=== PATIENT | male | born 1995 | race Two or more races ===

== ENCOUNTER 2023-10-20 08:40 | Day surgery (SDC) | payer BC, OTHER ==
[2023-10-20] MEDS: Lactated Ringers 1,000 ML IV SCH (09:00)
[2023-10-20] MEDS ORDERED: dexmedeTOMIDine HCl 200 MCG/2 ML SDV ONE (09:56)
[2023-10-20] MEDS ORDERED: propofoL 50 ML ONE ×2 (09:57→10:10)
[2023-10-20] MEDS ORDERED: Lactated Ringers 1,000 ML IV SCH (11:00)
== END 2023-10-20 11:41 | disposition home or self-care (01) ==
LOC: MW.SDS 08:40
PROVIDERS: ATTEND Surgery
DX: K29.70 Gastritis, unspecified, without bleeding (principal); K21.9 Gastro-esophageal reflux disease without esophagitis; K31.89 Other diseases of stomach and duodenum; F41.9 Anxiety disorder, unspecified; J45.909 Unspecified asthma, uncomplicated; F32.A Depression, unspecified; Z87.891 Personal history of nicotine dependence; Z79.899 Other long term (current) drug therapy
CPT/HCPCS: 43239; 45380; J2704; J7120; 00813; J3490

== ENCOUNTER 2024-01-24 13:27 | Day surgery (SDC) | payer OTHER ==
[2024-01-24] MEDS: Acetaminophen/HYDROcodone 325-10 MG Tab PO ONE (14:49)
[2024-01-24] MEDS ORDERED: Sodium Chloride 0.9% 2.5 ML Syringe FLUSH PRN (14:59)
[2024-01-24] MEDS ORDERED: Sodium Chloride 0.9% 10 ML Syringe FLUSH PRN (14:59)
[2024-01-24 15:39] LABS: BASOPHILS ABSOLUTE AUTO 0.06 K/uL (0.00-0.20); BASOPHILS PERCENT AUTO 0.4 % (0.0-1.0); EOSINOPHILS PERCENT AUTO 0.7 % (0.0-6.0); HEMATOCRIT 42.2 % (42.0-52.0); HEMOGLOBIN 14.5 g/dL (14.0-18.0); IMMATURE GRAN ABSOLUTE AUTO 0.05 K/uL (0.00-0.05); IMMATURE GRAN PERCENT AUTO 0.3 % (0.0-0.4); LYMPHOCYTES ABSOLUTE AUTO 2.85 K/uL (1.00-4.80); MEAN CORPUSCULAR HEMOGLOBIN 28.7 pg (28.0-32.0); MEAN CORPUSCULAR HGB CONC 34.4 g/dL (32.0-36.0); MEAN CORPUSCULAR VOLUME 83.4 fL (83.0-99.0); MEAN PLATELET VOLUME 10.9 fL (9.4-12.4); MONOCYTES ABSOLUTE AUTO 0.84 K/uL (0.00-0.80); MONOCYTES PERCENT AUTO 5.6 % (0.0-8.0); NEUTROPHILS ABSOLUTE AUTO 11.08 K/uL (1.80-7.70); PLATELET COUNT,PLT 330 K/uL (150-400); RED BLOOD CELL COUNT 5.06 M/uL (4.52-5.90); WHITE BLOOD CELL COUNT,WBC 14.98 K/uL (3.9-11.3)
[2024-01-24 16:09] LABS: EST CRCL DRUG DOSING (CG) 101.02 mL/min; POTASSIUM,K 3.5 mmol/L (3.5-5.1)
[2024-01-24] MEDS ORDERED: Bupivacaine 0.5% 10 ML SDV ONE (16:56)
[2024-01-24] MEDS ORDERED: Lidocaine 2% 5 ML SDV ONE (16:56)
[2024-01-24] MEDS ORDERED: Ondansetron 4 MG/2 ML SDV ONE (17:03)
[2024-01-24] MEDS ORDERED: Propofol 200 MG/20 ML SDV ONE (17:10)
[2024-01-24] MEDS ORDERED: Dexamethasone 4 MG/ML 5 ML MDV ONE (17:11)
[2024-01-24] MEDS ORDERED: Metoclopramide 10 MG/2 ML SDV ONE ×2 (17:11)
== END 2024-01-24 19:10 | disposition home or self-care (01) ==
LOC: MW.ED 13:27 → MW.SDS 18:04 → MW.MS 18:34 → MW.SDS 19:10
PROVIDERS: ATTEND Orthopaedic Surgery
DX: M24.411 Recurrent dislocation, right shoulder (principal); S42.291A Other displaced fracture of upper end of right humerus, initial encounter for closed fracture; J45.909 Unspecified asthma, uncomplicated; K21.9 Gastro-esophageal reflux disease without esophagitis; F32.A Depression, unspecified; Z79.899 Other long term (current) drug therapy
CPT/HCPCS: 23655; 36415; 73020; 76000; 80048; 85025; 93005; A9270; J0665; J1100; J2405; J2704; J2765; 01620; 99285; J3490

== ENCOUNTER 2024-01-28 18:55 | Observation (INO) | payer OTHER ==
[2024-01-28] MEDS: Sodium Chloride 0.9% 10 ML Syringe FLUSH PRN (19:02)
[2024-01-28] MEDS: Lactated Ringers 1,000 ML IV ONE ×2 (19:02→21:30)
[2024-01-28] MEDS: Sodium Chloride 0.9% 2.5 ML Syringe FLUSH PRN (19:02)
[2024-01-28 19:06] LABS: BASE EXCESS VENOUS -14.5 (-2.0-3.0); PH,VENOUS 7.24 (7.31-7.41)
[2024-01-28 19:07] LABS: HEMATOCRIT 42.1 % (42.0-52.0); HEMOGLOBIN 13.9 g/dL (14.0-18.0); MEAN CORPUSCULAR HEMOGLOBIN 28.4 pg (28.0-32.0); MEAN CORPUSCULAR VOLUME 86.1 fL (83.0-99.0); MEAN PLATELET VOLUME 11.3 fL (9.4-12.4); PLATELET COUNT,PLT 357 K/uL (150-400); RED BLOOD CELL COUNT 4.89 M/uL (4.52-5.90); WHITE BLOOD CELL COUNT,WBC 14.67 K/uL (3.9-11.3)
[2024-01-28 19:25] LABS: D-DIMER QUANTITATIVE 0.78 mg/L FEU (0.00-0.50); INR 1.11 (0.86-1.11)
[2024-01-28 19:38] LABS: BAND ABSOLUTE MAN 8.51; LYMPHOCYTES ABSOLUTE MAN 8.51 K/uL (1.00-4.80); LYMPHOCYTES PERCENT MAN 58 % (24-44); MONOCYTES ABSOLUTE MAN 1.17 K/uL (0.00-0.80); MONOCYTES PERCENT MAN 8 % (0-8); SEG NEUTROPHILS ABSOLUTE MAN 4.99 K/uL (1.80-7.70); SEG NEUTROPHILS PERCENT MAN 34 % (41-71)
[2024-01-28 19:39] LABS: ACETAMINOPHEN <2.0 ug/mL; SALICYLATE 1.3 mg/dL (0.0-20.0)
[2024-01-28 19:51] LABS: A/G RATIO 1.3 (0.9-1.6); ALANINE AMINOTRANSFERASE,ALT 28 IU/L (14-63); ALBUMIN 4.1 g/dL (3.4-5.0); ALKALINE PHOSPHATASE 66 U/L (46-116); ASPARTATE AMNIOTRANSFERASE,AST 15 IU/L (15-37); BILIRUBIN TOTAL 0.4 mg/dL (0.2-1.0); BLOOD UREA NITROGEN,BUN 18 mg/dL (7.0-18.0); CALCIUM 9.5 mg/dL (8.5-10.1); CARBON DIOXIDE,CO2 11.4 mmol/L (21.0-32.0); CHLORIDE,CL 100 mmol/L (98-107); CREATINE KINASE,CK 86 U/L (26-308); CREATININE 1.6 mg/dL (0.8-1.3); EST CRCL DRUG DOSING (CG) 63.14 mL/min; ETHANOL BLOOD MEDICAL <3 mg/dL; GLUCOSE RANDOM 141 mg/dL (74-106); LIPASE 32 U/L (16-77); MAGNESIUM 2.6 mg/dL (1.8-2.4); POTASSIUM,K 4.2 mmol/L (3.5-5.1); PROTEIN TOTAL,TP 7.3 g/dL (6.4-8.2); SODIUM,NA 138 mmol/L (136-148); TSH ULTRASENSITIVE 4.62 uIU/mL (0.36-3.74)
[2024-01-28 19:52] LABS: ESTIMATED GFR 61 mL/min (>60)
[2024-01-28 20:09] LABS: T4 FREE 0.94 ng/dL (0.76-1.46)
[2024-01-28 20:59] LABS: PROLACTIN 55.9 ng/mL
[2024-01-28] MEDS: Iopamidol 755 MG/ML 500 ML Multipack Bottle IVPUSH ONE (21:14)
[2024-01-28 22:13] LABS: BASE EXCESS VENOUS -1.5 (-2.0-3.0); PH,VENOUS 7.41 (7.31-7.41)
[2024-01-28 22:16] LABS: AMPHETAMINES SCREEN, URINE NEGATIVE (CUTOFF=500); BARBITURATE SCREEN,URINE NEGATIVE (CUTOFF=200); BENZODIAZEPINES SCREEN,URINE NEGATIVE (CUTOFF=150); BUPRENORPHINE SCREEN,URINE NEGATIVE (CUTOFF=10); METHADONE SCREEN, URINE NEGATIVE (CUTOFF=200); METHAMPHETAMINES SCREEN, URINE NEGATIVE (CUTOFF=500); OXYCODONE SCREEN,URINE NEGATIVE (CUT0FF=100); PCP SCREEN,URINE NEGATIVE (CUTOFF=25); THC SCREEN,URINE 20 NG/ML PRESUMPTIVE POSITIVE (CUTOFF=50)
[2024-01-28 22:40] LABS: CALCIUM 8.4 mg/dL (8.5-10.1); CARBON DIOXIDE,CO2 21.5 mmol/L (21.0-32.0); CREATININE 1.1 mg/dL (0.8-1.3); EST CRCL DRUG DOSING (CG) 91.83 mL/min; POTASSIUM,K 3.7 mmol/L (3.5-5.1)
[2024-01-28] MEDS ORDERED: Melatonin 3 MG Tab PO PRN (22:52)
[2024-01-29] MEDS: Ondansetron 4 MG/2 ML SDV IVPUSH PRN (01:16)
[2024-01-29] MEDS: Valproate Sodium 500 MG/5 ML SDV IV STA (01:16)
[2024-01-29] MEDS: Lactated Ringers 1,000 ML IV SCH (01:17)
[2024-01-29 05:56] LABS: BASOPHILS ABSOLUTE AUTO 0.04 K/uL (0.00-0.20); BASOPHILS PERCENT AUTO 0.4 % (0.0-1.0); EOSINOPHILS ABSOLUTE AUTO 0.07 K/uL (0.00-0.45); EOSINOPHILS PERCENT AUTO 0.7 % (0.0-6.0); HEMATOCRIT 35.1 % (42.0-52.0); HEMOGLOBIN 11.9 g/dL (14.0-18.0); IMMATURE GRAN ABSOLUTE AUTO 0.02 K/uL (0.00-0.05); IMMATURE GRAN PERCENT AUTO 0.2 % (0.0-0.4); LYMPHOCYTES ABSOLUTE AUTO 2.86 K/uL (1.00-4.80); LYMPHOCYTES PERCENT AUTO 29.4 % (24.0-44.0); MEAN CORPUSCULAR HEMOGLOBIN 28.3 pg (28.0-32.0); MEAN CORPUSCULAR HGB CONC 33.9 g/dL (32.0-36.0); MEAN CORPUSCULAR VOLUME 83.6 fL (83.0-99.0); MEAN PLATELET VOLUME 10.7 fL (9.4-12.4); MONOCYTES ABSOLUTE AUTO 0.94 K/uL (0.00-0.80); MONOCYTES PERCENT AUTO 9.7 % (0.0-8.0); NEUTROPHILS PERCENT AUTO 59.6 % (41.0-71.0); PLATELET COUNT,PLT 251 K/uL (150-400); WHITE BLOOD CELL COUNT,WBC 9.73 K/uL (3.9-11.3)
[2024-01-29 06:23] LABS: A/G RATIO 1.3 (0.9-1.6); ALBUMIN 3.4 g/dL (3.4-5.0); BILIRUBIN TOTAL 0.4 mg/dL (0.2-1.0); CALCIUM 8.4 mg/dL (8.5-10.1); CARBON DIOXIDE,CO2 26.2 mmol/L (21.0-32.0); EST CRCL DRUG DOSING (CG) 101.02 mL/min; POTASSIUM,K 3.6 mmol/L (3.5-5.1); PROTEIN TOTAL,TP 6.1 g/dL (6.4-8.2)
[2024-01-29] MEDS: Divalproex Sodium Delayed-Release 500 MG Tab.CR PO SCH (07:52)
[2024-01-29] MEDS: Acetaminophen 325 MG Tab PO PRN (07:56)
[2024-01-29] MEDS ORDERED: Divalproex Sodium Delayed-Release 250 MG Tab.CR PO SCH (08:00)
[2024-01-29] MEDS: Gadobenate Dimeglumine 529 MG/ML 20 ML SDV IVPUSH ONE (13:42)
== END 2024-01-29 15:50 | disposition home or self-care (01) ==
LOC: MW.ED 18:55 → MW.MS 23:50
PROVIDERS: ADMIT Family Medicine; ATTEND Family Medicine
DX: R56.9 Unspecified convulsions (principal); G93.5 Compression of brain; J45.909 Unspecified asthma, uncomplicated; K21.9 Gastro-esophageal reflux disease without esophagitis; F32.A Depression, unspecified; F41.9 Anxiety disorder, unspecified
CPT/HCPCS: 36415; 70450; 70553; 71275; 72141; 73030; 80048; 80053; 80143; 80179; 80305; 80307; 82009; 82550; 82803; 83690; 83735; 84146; 84439; 84443; 84484; 85025; 85379; 85610; 93005; 96361; 96374; 99285; A9270; A9577; G0378; J2405; J3490; J7120; Q9967; 93010; 96360; 99284